=== PATIENT | female | born 2000 | race Caucasian/White ===

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

== ENCOUNTER 2021-04-28 13:20 | Emergency (ER) | payer OTHER ==
[~2021-04-28] VITALS: Ht 162.5 cm; Wt 114.3 kg
[2021-04-28 13:27] VITALS: BP 145/86
[2021-04-28 14:41] LABS: BASO # 0.1 10*3/uL (0.0-0.1); EOS # 0.4 10*3/uL (0.0-0.4); EOS % 3.9 % (1.0-4.0); HEMATOCRIT 36.9 % (37.0-47.0); LYMPH # 1.3 10*3/uL (1.3-4.4); LYMPH % 11.6 % (27.0-41.0); MEAN CELL VOLUME 75.6 fl (81.0-99.0); MEAN CORPUSCULAR HGB 22.3 pg (27.0-31.0); MEAN CORPUSCULAR HGB CONC 29.5 g/dl (33.0-37.0); MEAN PLATELET VOLUME 9.6 fl (9.6-12.3); MONO # 1.3 10*3/uL (0.1-1.0); MONO % 11.4 % (3.0-9.0); NEUT # 7.9 10*3/uL (2.3-7.9); NEUT % 71.4 % (47.0-73.0); PLATELET COUNT AUTOMATED 446 10*3/uL (130-400); RED BLOOD COUNT 4.88 10*6/uL (4.10-5.10); RED CELL DISTRI WIDTH 15.6 % (0-14.5); WHITE BLOOD COUNT 11.1 10*3/uL (4.8-10.8)
[2021-04-28 14:46] LABS: BILIRUBIN Negative (Negative); BLOOD Negative (Negative); CLARITY Cloudy (Clear); COLOR Yellow (Yellow); GLUCOSE Negative (Negative); KETONE Negative (Negative); LEUKO ESTERASE 3+ (Negative); NITRITE Negative (Negative); SPECIFIC GRAVITY 1.025 (1.001-1.030); UROBILINOGEN 0.2 E.U./dl (0.0-1.0)
[2021-04-28 14:57] LABS: ACT PARTIAL THROMBO TIME 28.7 SECONDS (20.0-32.1); INTERNATIONAL NORM RATIO 0.9 (2.0-3.5)
[2021-04-28] MEDS ORDERED: B COMPLEX1 EACH PO (15:02)
[2021-04-28] MEDS ORDERED: NEURONTIN300 MG PO (15:02)
[2021-04-28] MEDS ORDERED: VITAMIN C100 M3 PO (15:03)
[2021-04-28] MEDS ORDERED: MAGNESIUM400 M1 PO (15:03)
[2021-04-28] MEDS ORDERED: BIOTIN5 M1 PO (15:04)
[2021-04-28] MEDS ORDERED: NATURE'S BLEND F1 MG PO (15:04)
[2021-04-28] MEDS ORDERED: ASPIRIN ADULT L81 M1 PO (15:04)
[2021-04-28] MEDS ORDERED: PROZAC40 M1 PO (15:06)
[2021-04-28] MEDS ORDERED: IMITREX100 MG PO (15:07)
[2021-04-28 15:08] LABS: ALKALINE PHOSPHATASE 91 U/L (45-117); BUN 8 mg/dl (7-24); CHLORIDE 104 mmol/L (98-107); CREATININE 0.92 mg/dL (0.55-1.02); LIPASE 88 U/L (73-393); SGOT/AST 12 IU/L (3-35); SGPT/ALT 19 U/L (12-78); SODIUM 140 mmol/L (136-145); TOTAL PROTEIN 7.3 gm/dL (6.4-8.2)
[2021-04-28 15:13] LABS: TROPONIN I < 0.015 ng/ml (<0.045)
[2021-04-28 15:22] LABS: BACTERIA 3+; EPITHELIAL CELLS 31-40; WBC TNTC wbc/hpf (0-5)
[2021-04-28] MEDS ORDERED: ZITHROMAX250 MG PO (18:39)
[2021-04-28] MEDS ORDERED: PREDNISONE20 M1 PO (18:39)
[2021-04-28] MEDS ORDERED: PROVENTIL HFA6.7 GM INH (18:39)
== END 2021-04-28 20:59 | disposition home or self-care (01) ==
LOC: ED 13:20
PROVIDERS: Physician Assistant
DX: J18.9 Pneumonia, unspecified organism (principal); Z88.8 Allergy status to other drugs, medicaments and biological substances; Z79.899 Other long term (current) drug therapy; Z79.82 Long term (current) use of aspirin

== ENCOUNTER 2021-04-30 02:45 | Inpatient (IN) | payer OTHER ==
[~2021-04-30] VITALS: Ht 162.5 cm; Wt 113.4 kg
[~2021-04-30 02:45] MED LIST changes: +ASPIRIN ADULT L81 M1 PO; +B COMPLEX1 EACH PO; +BIOTIN5 M1 PO; +IMITREX100 MG PO; +MAGNESIUM400 M1 PO; +NATURE'S BLEND F1 MG PO; +NEURONTIN300 MG PO; +PREDNISONE20 M1 PO; +PROVENTIL HFA6.7 GM INH; +PROZAC40 M1 PO; +VITAMIN C100 M3 PO; +ZITHROMAX250 MG PO
[2021-04-30 02:56] VITALS: BP 122/64
[2021-04-30 04:39] LABS: BASO % 0.3 % (0.0-1.0); LYMPH # 0.4 10*3/uL (1.3-4.4); LYMPH % 3.4 % (27.0-41.0); MEAN CELL VOLUME 74.7 fl (81.0-99.0); MEAN CORPUSCULAR HGB 22.2 pg (27.0-31.0); MEAN CORPUSCULAR HGB CONC 29.7 g/dl (33.0-37.0); MEAN PLATELET VOLUME 9.7 fl (9.6-12.3); MONO # 1.2 10*3/uL (0.1-1.0); MONO % 10.3 % (3.0-9.0); NEUT # 9.8 10*3/uL (2.3-7.9); NEUT % 84.9 % (47.0-73.0); PLATELET COUNT AUTOMATED 417 10*3/uL (130-400); RED BLOOD COUNT 4.42 10*6/uL (4.10-5.10); RED CELL DISTRI WIDTH 15.5 % (0-14.5); WHITE BLOOD COUNT 11.5 10*3/uL (4.8-10.8)
[2021-04-30 04:49] VITALS: BP 129/64
[2021-04-30 04:54] LABS: ALBUMIN 2.9 gm/dl (3.1-4.5); ALKALINE PHOSPHATASE 77 U/L (45-117); BUN 10 mg/dl (7-24); CHLORIDE 108 mmol/L (98-107); CREATININE 0.92 mg/dL (0.55-1.02); POTASSIUM 4.1 mmol/L (3.5-5.1); SGOT/AST 15 IU/L (3-35); SGPT/ALT 28 U/L (12-78); SODIUM 138 mmol/L (136-145); TOTAL PROTEIN 6.8 gm/dL (6.4-8.2)
[2021-04-30 05:00] LABS: BILIRUBIN Negative (Negative); BLOOD Negative (Negative); CLARITY Clear (Clear); COLOR Yellow (Yellow); GLUCOSE Negative (Negative); KETONE Negative (Negative); LEUKO ESTERASE 2+ (Negative); NITRITE Negative (Negative); PH 5.5 (4.5-8.0); UROBILINOGEN 0.2 E.U./dl (0.0-1.0)
[2021-04-30 05:16] LABS: BACTERIA 1+; RBC 16-20 rbc/hpf (0-2); WBC 21-30 wbc/hpf (0-5)
[2021-04-30 06:22] VITALS: BP 122/77
[2021-04-30 08:24] VITALS: BP 124/85
[2021-04-30 12:38] VITALS: BP 122/78
[2021-04-30 20:18] VITALS: BP 124/74
[2021-05-01 03:22] VITALS: BP 110/69
[2021-05-01 05:52] LABS: ALBUMIN 2.8 gm/dl (3.1-4.5); BUN 11 mg/dl (7-24); CHLORIDE 109 mmol/L (98-107); SGOT/AST 12 IU/L (3-35); SGPT/ALT 23 U/L (12-78); SODIUM 139 mmol/L (136-145)
[2021-05-01 06:00] LABS: ALKALINE PHOSPHATASE 72 U/L (45-117); CHOLESTEROL 219 mg/dL (<200); CREATININE 0.74 mg/dL (0.55-1.02); LDL CHOLESTEROL 142 mg/dL (9-159); THYROID STIM HORMONE (HS) 0.152 uIU/ml (0.358-4.75); TOTAL PROTEIN 6.8 gm/dL (6.4-8.2); TRIGLYCERIDES 101 mg/dl (<150)
[2021-05-01 06:10] LABS: BASO % 0.1 % (0.0-1.0); HEMATOCRIT 35.2 % (37.0-47.0); LYMPH # 1.5 10*3/uL (1.3-4.4); LYMPH % 18.8 % (27.0-41.0); MEAN CELL VOLUME 75.5 fl (81.0-99.0); MEAN CORPUSCULAR HGB 21.9 pg (27.0-31.0); MEAN PLATELET VOLUME 10.1 fl (9.6-12.3); MONO # 1.3 10*3/uL (0.1-1.0); MONO % 16.9 % (3.0-9.0); NEUT # 4.9 10*3/uL (2.3-7.9); NEUT % 63.4 % (47.0-73.0); PLATELET COUNT AUTOMATED 444 10*3/uL (130-400); RED BLOOD COUNT 4.66 10*6/uL (4.10-5.10); RED CELL DISTRI WIDTH 15.7 % (0-14.5); WHITE BLOOD COUNT 7.8 10*3/uL (4.8-10.8)
[2021-05-01 06:19] VITALS: BP 120/79
[2021-05-01 06:53] LABS: ACT PARTIAL THROMBO TIME 29.9 SECONDS (20.0-32.1); INTERNATIONAL NORM RATIO 0.9 (2.0-3.5)
[2021-05-01 06:56] LABS: FERRITIN 56.5 ng/mL (10.0-291.0); VITAMIN D, 25-HYDROXY 35.3 ng/mL (30-100)
[2021-05-01 08:36] VITALS: BP 109/65
[2021-05-01 13:00] VITALS: BP 106/61
[2021-05-01 20:00] VITALS: BP 136/86
[2021-05-02] VITALS: BP 111/67
[2021-05-02 08:00] VITALS: BP 130/89
[2021-05-02 12:00] VITALS: BP 121/78
[2021-05-02] MEDS ORDERED: DECADRON6 M1 PO (12:21)
== END 2021-05-02 13:23 | disposition home or self-care (01) | DRG 720 ==
LOC: ED 02:45 → 4E 05:55 → EDHOLD 05:55 → 4E 05-01 12:18
PROVIDERS: Emergency Medicine; Hospitalist; ADMIT Family Medicine; ATTEND Family Medicine
PROC: XW033E5 Introduction of Remdesivir Anti-infective into Peripheral Vein, Percutaneous Approach, New Technology Group 5 (ICD-10-PCS; principal; 2021-05-01)
DX: A41.9 Sepsis, unspecified organism (principal); R65.20 Severe sepsis without septic shock; U07.1 COVID-19; J12.82 Pneumonia due to coronavirus disease 2019; E44.0 Moderate protein-calorie malnutrition; N30.00 Acute cystitis without hematuria; G43.909 Migraine, unspecified, not intractable, without status migrainosus; E87.2 Acidosis; J96.01 Acute respiratory failure with hypoxia; G35 Multiple sclerosis; F32.A Depression, unspecified; R73.9 Hyperglycemia, unspecified; Z88.5 Allergy status to narcotic agent; Z88.8 Allergy status to other drugs, medicaments and biological substances; Z79.51 Long term (current) use of inhaled steroids; Z79.82 Long term (current) use of aspirin; Z79.899 Other long term (current) drug therapy; Z68.41 Body mass index [BMI] 40.0-44.9, adult

== ENCOUNTER → 2021-07-07 | Outpatient (CLI) | payer OTHER ==
[~2021-07-07] MED LIST changes: +DECADRON6 M1 PO
== END | disposition home or self-care (01) ==
LOC: CT 12:32
PROVIDERS: ATTEND Internal Medicine Critical Care Medicine
DX: U07.1 COVID-19 (principal); J12.82 Pneumonia due to coronavirus disease 2019; J84.10 Pulmonary fibrosis, unspecified

== ENCOUNTER → 2021-08-17 | Outpatient (CLI) | payer OTHER | END | disposition home or self-care (01) | LOC: CARD 00:04 | PROVIDERS: ATTEND Internal Medicine Cardiovascular Disease | DX: I35.1 Nonrheumatic aortic (valve) insufficiency (principal) ==

== ENCOUNTER 2022-06-15 22:30 | Emergency (ER) | payer OTHER ==
[~2022-06-15] VITALS: Ht 165.1 cm; Wt 99.4 kg
[~2022-06-15 22:30] MED LIST changes: +ADDERALL XR25 MG PO; +ATIVAN0.5 MG PO; +BENTYL PO; +BUDESONIDE-FO10.2 GM INH; +CETIRIZINE HYDR10 MG PO; +DILTIAZEM CD240 MG PO; +DULOXETINE HCL40 MG PO; +GEMTESA75 MG PO; +HYDROCHLOROTHIA25 M1 PO; +KETOCONAZOLE 1120 ML T; +METOPROLOL SUCC50 M1 PO; +NEXTSTELLIS 3-1 EACH PO; +NYSTATIN1 EAC3 T; +POTASSIUM CHLO20 ME4 PO; +TORSEMIDE20 MG PO; +TRAZODONE50 MG PO
[2022-06-15 22:45] VITALS: BP 130/86
[2022-06-15 23:37] LABS: HEMATOCRIT 34.7 % (37.0-47.0); MEAN CORPUSCULAR HGB 22.2 pg (27.0-31.0); MEAN CORPUSCULAR HGB CONC 30.8 g/dl (33.0-37.0); MEAN PLATELET VOLUME 8.7 fl (9.6-12.3); PLATELET COUNT AUTOMATED 572 10*3/uL (130-400); RED BLOOD COUNT 4.82 10*6/uL (4.10-5.10); WHITE BLOOD COUNT 13.1 10*3/uL (4.8-10.8)
[2022-06-15 23:38] LABS: MANUAL DIFF REFLEX YES
[2022-06-15 23:56] LABS: ALKALINE PHOSPHATASE 89 U/L (45-117); BUN 3 mg/dl (7-24); CHLORIDE 96 mmol/L (98-107); CREATININE 0.71 mg/dL (0.55-1.02); LIPASE 226 U/L (73-393); POTASSIUM 2.7 mmol/L (3.5-5.1); SGPT/ALT 22 U/L (12-78); SODIUM 134 mmol/L (136-145); TOTAL PROTEIN 5.2 gm/dL (6.4-8.2)
[2022-06-15 23:58] LABS: PLATELET SUFFICIENCY HIGH (NORMAL); TOTAL CELLS COUNTED 100 #CELLS
[2022-06-16 00:30] LABS: BILIRUBIN Negative (Negative); BLOOD Trace-Lysed (Negative); CLARITY Turbid (Clear); COLOR Dark Yellow (Yellow); GLUCOSE Negative (Negative); KETONE Trace (Negative); LEUKO ESTERASE 3+ (Negative); NITRITE Negative (Negative); PH 6.5 (4.5-8.0); SPECIFIC GRAVITY 1.025 (1.001-1.030)
[2022-06-16 00:39] LABS: CALCIUM OXALATE CRYSTALS 3+; EPITHELIAL CELLS TNTC; WBC 41-50 wbc/hpf (0-5)
[2022-06-16] MEDS ORDERED: CIPRO500 MG PO (04:39)
[2022-06-16] MEDS ORDERED: PREDNISONE20 M1 PO (04:39)
[2022-06-16] MEDS ORDERED: METRONIDAZOLE500 M1 PO (04:39)
== END 2022-06-16 05:00 | disposition home or self-care (01) ==
LOC: ED 22:30
PROVIDERS: Internal Medicine
DX: A41.9 Sepsis, unspecified organism (principal); K52.9 Noninfective gastroenteritis and colitis, unspecified; E87.8 Other disorders of electrolyte and fluid balance, not elsewhere classified; D64.9 Anemia, unspecified; E43 Unspecified severe protein-calorie malnutrition; Z88.8 Allergy status to other drugs, medicaments and biological substances; Z79.899 Other long term (current) drug therapy; Z79.82 Long term (current) use of aspirin; Z90.49 Acquired absence of other specified parts of digestive tract; Z90.89 Acquired absence of other organs

== ENCOUNTER 2022-07-01 21:40 | Emergency (ER) | payer OTHER ==
[~2022-07-01] VITALS: Ht 162.5 cm; Wt 99.8 kg
[~2022-07-01 21:40] MED LIST changes: +CIPRO500 MG PO; +METRONIDAZOLE500 M1 PO
[2022-07-01 21:52] VITALS: BP 134/73
[2022-07-05] MEDS ORDERED: ORTIKOS9 MG PO (08:53)
[2022-07-05] MEDS ORDERED: ASACOL HD800 M1 PO (08:53)
== END 2022-07-01 23:42 | disposition home or self-care (01) ==
LOC: ED 21:40
DX: G43.909 Migraine, unspecified, not intractable, without status migrainosus (principal); S93.402A Sprain of unspecified ligament of left ankle, initial encounter; Z88.8 Allergy status to other drugs, medicaments and biological substances; Z79.899 Other long term (current) drug therapy; Z79.82 Long term (current) use of aspirin; Z90.49 Acquired absence of other specified parts of digestive tract; Z90.89 Acquired absence of other organs; W18.39XA Other fall on same level, initial encounter; Y93.89 Activity, other specified; Y92.89 Other specified places as the place of occurrence of the external cause; Y99.8 Other external cause status

== ENCOUNTER → 2022-07-05 | Day surgery (SDC) | payer OTHER ==
[~2022-07-05] VITALS: Ht 162.5 cm; Wt 99.8 kg
[~2022-07-05] MED LIST changes: +ASACOL HD800 M1 PO; +ORTIKOS9 MG PO
[2022-07-05 08:15] VITALS: BP 143/71
[2022-07-05 08:50] VITALS: BP 95/43
[2022-07-05 09:05] VITALS: BP 114/84
[2022-07-05 09:20] VITALS: BP 117/81
== END | disposition home or self-care (01) ==
LOC: SDC 07-02 02:04
PROVIDERS: ATTEND Surgery
DX: R63.4 Abnormal weight loss (principal); K29.50 Unspecified chronic gastritis without bleeding; K52.89 Other specified noninfective gastroenteritis and colitis; K51.90 Ulcerative colitis, unspecified, without complications; F90.9 Attention-deficit hyperactivity disorder, unspecified type; F41.9 Anxiety disorder, unspecified; F32.9 Major depressive disorder, single episode, unspecified; Z79.899 Other long term (current) drug therapy; Z90.89 Acquired absence of other organs

== ENCOUNTER 2023-11-07 19:58 | Inpatient (IN) | payer SELFPAY ==
[~2023-11-07] VITALS: Ht 160 cm; Wt 118.4 kg
[2023-11-07 20:08] VITALS: BP 132/88
[2023-11-07] MEDS ORDERED: IOHEXOL 300 MG/ML 100 ML VIAL IV ONE (20:45)
[2023-11-07 20:53] LABS: BASO # 0.1 10*3/uL (0.0-0.1); BASO % 0.5 % (0.0-1.0); EOS # 0.2 10*3/uL (0.0-0.4); EOS % 1.5 % (1.0-4.0); HEMATOCRIT 39.7 % (37.0-47.0); LYMPH # 2.9 10*3/uL (1.3-4.4); LYMPH % 18.3 % (27.0-41.0); MEAN CELL VOLUME 78.8 fl (81.0-99.0); MEAN CORPUSCULAR HGB 22.8 pg (27.0-31.0); MEAN PLATELET VOLUME 10.5 fl (9.6-12.3); MONO # 1.3 10*3/uL (0.1-1.0); MONO % 8.4 % (3.0-9.0); NEUT # 11.2 10*3/uL (2.3-7.9); NEUT % 70.8 % (47.0-73.0); PLATELET COUNT AUTOMATED 432 10*3/uL (130-400); RED BLOOD COUNT 5.04 10*6/uL (4.10-5.10); WHITE BLOOD COUNT 15.8 10*3/uL (4.8-10.8)
[2023-11-07 21:13] LABS: ALKALINE PHOSPHATASE 99 U/L (46-116); BUN 10 mg/dl (9-23); CHLORIDE 106 mmol/L (98-107); POTASSIUM 3.8 mmol/L (3.4-5.1); SGPT/ALT 23 U/L (5-49); TOTAL PROTEIN 6.8 gm/dL (6.0-8.0)
[2023-11-07 21:55] LABS: BILIRUBIN Negative (Negative); BLOOD 3+ (Negative); CLARITY Turbid (Clear); COLOR Yellow (Yellow); GLUCOSE Negative (Negative); KETONE Negative (Negative); LEUKO ESTERASE 3+ (Negative); NITRITE Negative (Negative); PH 5.5 (4.5-8.0); SPECIFIC GRAVITY 1.025 (1.001-1.030); UROBILINOGEN 0.2 E.U./dl (0.0-1.0)
[2023-11-07 22:14] LABS: WBC TNTC wbc/hpf (0-5)
[2023-11-07] MEDS ORDERED: SODIUM CHLORIDE 0.9% 1,000 ML IV SCH (23:30)
[2023-11-07] MEDS ORDERED: Ceftriaxone Sodium 1 GM/10 ML SYR IV ONE (23:30)
[2023-11-08] MEDS ORDERED: ACETAMINOPHEN 650 MG SUPP R PRN (00:25)
[2023-11-08] MEDS ORDERED: TEMAZEPAM 15 MG CAP PO PRN (00:25)
[2023-11-08] MEDS ORDERED: Ondansetron Hydrochloride 4 MG/2 ML VIAL IV PRN (00:25)
[2023-11-08] MEDS ORDERED: ACETAMINOPHEN 325 MG TAB PO PRN (00:25)
[2023-11-08 00:33] VITALS: BP 137/80
[2023-11-08 01:12] VITALS: BP 146/85
[2023-11-08] MEDS ORDERED: Piperacillin Sodium/Tazobact 50 ML IV SCH (06:00)
[2023-11-08 06:30] LABS: BUN 6 mg/dl (9-23); CHLORIDE 111 mmol/L (98-107); POTASSIUM 3.7 mmol/L (3.4-5.1)
[2023-11-08 07:25] LABS: BASO # 0.1 10*3/uL (0.0-0.1); BASO % 0.6 % (0.0-1.0); EOS # 0.4 10*3/uL (0.0-0.4); EOS % 2.8 % (1.0-4.0); HEMATOCRIT 36.2 % (37.0-47.0); LYMPH # 2.5 10*3/uL (1.3-4.4); LYMPH % 19.5 % (27.0-41.0); MEAN CELL VOLUME 79.2 fl (81.0-99.0); MEAN PLATELET VOLUME 10.6 fl (9.6-12.3); MONO # 1.5 10*3/uL (0.1-1.0); MONO % 11.3 % (3.0-9.0); NEUT # 8.4 10*3/uL (2.3-7.9); NEUT % 65.3 % (47.0-73.0); PLATELET COUNT AUTOMATED 338 10*3/uL (130-400); RED BLOOD COUNT 4.57 10*6/uL (4.10-5.10); RED CELL DISTRI WIDTH 15.2 % (0-14.5); WHITE BLOOD COUNT 12.9 10*3/uL (4.8-10.8)
[2023-11-08 08:00] VITALS: BP 118/68
[2023-11-08] MEDS ORDERED: methylPREDNISolone sod succ 40 MG VIAL IV SCH (10:00)
[2023-11-08] MEDS ORDERED: Enoxaparin Sodium 40 MG/0.4 ML SYR SC SCH (10:00)
[2023-11-08 12:00] VITALS: BP 142/80
[2023-11-08 16:00] VITALS: BP 124/65
[2023-11-08 20:00] VITALS: BP 126/81
[2023-11-09] VITALS: BP 107/54
[2023-11-09 05:56] LABS: BUN 8 mg/dl (9-23); CHLORIDE 109 mmol/L (98-107); POTASSIUM 3.8 mmol/L (3.4-5.1)
[2023-11-09 06:11] LABS: HEMATOCRIT 36.9 % (37.0-47.0); MEAN CELL VOLUME 78.7 fl (81.0-99.0); MEAN CORPUSCULAR HGB 23.5 pg (27.0-31.0); MEAN CORPUSCULAR HGB CONC 29.8 g/dl (33.0-37.0); PLATELET COUNT AUTOMATED 415 10*3/uL (130-400); RED BLOOD COUNT 4.69 10*6/uL (4.10-5.10); RED CELL DISTRI WIDTH 15.3 % (0-14.5); WHITE BLOOD COUNT 15.8 10*3/uL (4.8-10.8)
[2023-11-09 06:16] LABS: MANUAL DIFF REFLEX YES
[2023-11-09 07:02] LABS: PLATELET SUFFICIENCY HIGH (NORMAL); POLYCHROMASIA SLIGHT; TOTAL CELLS COUNTED 100 #CELLS
[2023-11-09 07:03] LABS: MICROCYTOSIS SLIGHT; OVALOCYTES FEW
[2023-11-09 10:31] VITALS: BP 118/70
== END 2023-11-09 13:00 | disposition home or self-care (01) | DRG 872 ==
LOC: ED 19:58 → 4E 11-08 00:04 → EDHOLD 11-08 00:04 → 4E 11-08 00:22
PROVIDERS: Emergency Medicine; Student in an Organized Health Care Education/Training Program; ADMIT Family Medicine; ATTEND Family Medicine
DX: A41.9 Sepsis, unspecified organism (principal); N30.01 Acute cystitis with hematuria; K50.911 Crohn's disease, unspecified, with rectal bleeding; K52.9 Noninfective gastroenteritis and colitis, unspecified; D50.9 Iron deficiency anemia, unspecified; D75.839 Thrombocytosis, unspecified; F32.A Depression, unspecified; G43.909 Migraine, unspecified, not intractable, without status migrainosus; I10 Essential (primary) hypertension; D56.0 Alpha thalassemia; J45.20 Mild intermittent asthma, uncomplicated; E55.9 Vitamin D deficiency, unspecified; Z88.5 Allergy status to narcotic agent; Z88.1 Allergy status to other antibiotic agents; Z79.51 Long term (current) use of inhaled steroids; Z79.899 Other long term (current) drug therapy; Z90.49 Acquired absence of other specified parts of digestive tract; Z82.49 Family history of ischemic heart disease and other diseases of the circulatory system

== ENCOUNTER 2024-03-03 12:16 | Inpatient (IN) | payer SELFPAY ==
[~2024-03-03] VITALS: Ht 162.6 cm; Wt 118.9 kg
[2024-03-03 13:04] VITALS: BP 139/84
[2024-03-03 13:17] LABS: BILIRUBIN 1+ (Negative); BLOOD 3+ (Negative); CLARITY Cloudy (Clear); COLOR Dark Yellow (Yellow); GLUCOSE Negative (Negative); KETONE Trace (Negative); LEUKO ESTERASE 2+ (Negative); NITRITE Positive (Negative); SPECIFIC GRAVITY >= 1.030 (1.001-1.030)
[2024-03-03 13:39] LABS: RBC TNTC rbc/hpf (0-2); WBC TNTC wbc/hpf (0-5)
[2024-03-03] MEDS ORDERED: SODIUM CHLORIDE 0.9% 1,000 ML IV SCH (14:05)
[2024-03-03] MEDS ORDERED: Ondansetron Hydrochloride 4 MG/2 ML VIAL IV ONE (14:05)
[2024-03-03 14:15] LABS: BASO # 0.1 10*3/uL (0.0-0.1); BASO % 0.8 % (0.0-1.0); EOS # 0.3 10*3/uL (0.0-0.4); EOS % 2.3 % (1.0-4.0); HEMATOCRIT 40.6 % (37.0-47.0); LYMPH # 2.1 10*3/uL (1.3-4.4); LYMPH % 15.8 % (27.0-41.0); MEAN CELL VOLUME 74.4 fl (81.0-99.0); MEAN CORPUSCULAR HGB 21.6 pg (27.0-31.0); MEAN CORPUSCULAR HGB CONC 29.1 g/dl (33.0-37.0); MEAN PLATELET VOLUME 10.1 fl (9.6-12.3); MONO # 1.3 10*3/uL (0.1-1.0); MONO % 9.9 % (3.0-9.0); NEUT # 9.3 10*3/uL (2.3-7.9); NEUT % 70.6 % (47.0-73.0); PLATELET COUNT AUTOMATED 512 10*3/uL (130-400); RED BLOOD COUNT 5.46 10*6/uL (4.10-5.10); RED CELL DISTRI WIDTH 16.6 % (0-14.5); WHITE BLOOD COUNT 13.2 10*3/uL (4.8-10.8)
[2024-03-03 14:28] LABS: BUN 11 mg/dl (9-23); CHLORIDE 108 mmol/L (98-107)
[2024-03-03] MEDS ORDERED: Ceftriaxone Sodium 1 GM/10 ML SYR IV ONE (14:45)
[2024-03-03] MEDS ORDERED: Ketorolac Tromethamine 30 MG/ML VIAL IV ONE (15:25)
[2024-03-03] MEDS ORDERED: AZITHROMYCIN 250 ML IV ONE (15:30)
[2024-03-03] MEDS ORDERED: Ondansetron Hydrochloride 4 MG/2 ML VIAL IV PRN (15:50)
[2024-03-03] MEDS ORDERED: ACETAMINOPHEN 325 MG TAB PO PRN (15:50)
[2024-03-03] MEDS ORDERED: ADDERALL XR 3030 MG PO (15:52)
[2024-03-03] MEDS ORDERED: SINGULAIR10 M1 PO (15:55)
[2024-03-03] MEDS ORDERED: VENT7GM INH (15:55)
[2024-03-03] MEDS ORDERED: POTASSIUM CHLO20 ME3 PO (15:55)
[2024-03-03] MEDS ORDERED: OMEGA 3-6-9 11200 MG PO (15:56)
[2024-03-03] MEDS ORDERED: HYDR25T PO (15:59)
[2024-03-03] MEDS ORDERED: MAGOX 400400 MG PO (15:59)
[2024-03-03] MEDS ORDERED: SODIUM CHLORIDE 0.9% 1,000 ML IV ONE (16:05)
[2024-03-03] MEDS ORDERED: OCREVUS (16:13)
[2024-03-03] MEDS ORDERED: Meropenem 1 GM in SODIUM CHLORIDE 0.9% 100 ML IV SCH (18:00)
[2024-03-03 18:05] VITALS: BP 114/74
[2024-03-03 20:20] VITALS: BP 107/58
[2024-03-04] VITALS: BP 120/64
[2024-03-04] MEDS ORDERED: Ketorolac Tromethamine 30 MG/ML VIAL IV ONE (00:05)
[2024-03-04] MEDS ORDERED: Ketorolac Tromethamine 30 MG/ML VIAL IV PRN (06:15)
[2024-03-04 06:53] LABS: BASO # 0.1 10*3/uL (0.0-0.1); BASO % 0.8 % (0.0-1.0); EOS # 0.2 10*3/uL (0.0-0.4); EOS % 1.4 % (1.0-4.0); HEMATOCRIT 36.6 % (37.0-47.0); LYMPH # 2.4 10*3/uL (1.3-4.4); LYMPH % 18.2 % (27.0-41.0); MEAN CELL VOLUME 74.4 fl (81.0-99.0); MEAN CORPUSCULAR HGB 22.2 pg (27.0-31.0); MEAN CORPUSCULAR HGB CONC 29.8 g/dl (33.0-37.0); MEAN PLATELET VOLUME 10.2 fl (9.6-12.3); MONO # 0.9 10*3/uL (0.1-1.0); MONO % 6.7 % (3.0-9.0); NEUT # 9.5 10*3/uL (2.3-7.9); NEUT % 72.1 % (47.0-73.0); PLATELET COUNT AUTOMATED 431 10*3/uL (130-400); RED BLOOD COUNT 4.92 10*6/uL (4.10-5.10); RED CELL DISTRI WIDTH 16.7 % (0-14.5); WHITE BLOOD COUNT 13.2 10*3/uL (4.8-10.8)
[2024-03-04 07:53] LABS: ALKALINE PHOSPHATASE 73 U/L (46-116); BUN 11 mg/dl (9-23); CHLORIDE 113 mmol/L (98-107); POTASSIUM 4.6 mmol/L (3.4-5.1); SGPT/ALT 12 U/L (5-49); TOTAL PROTEIN 5.4 gm/dL (6.0-8.0)
[2024-03-04 08:00] VITALS: BP 122/50
[2024-03-04] MEDS ORDERED: LORazepam 0.5 MG TAB PO PRN (08:30)
[2024-03-04] MEDS ORDERED: SODIUM CHLORIDE 0.9% 1,000 ML IV ONE (08:30)
[2024-03-04] MEDS ORDERED: Fluoxetine Hydrochloride 20 MG CAP PO SCH (10:00)
[2024-03-04] MEDS ORDERED: Enoxaparin Sodium 40 MG/0.4 ML SYR SC SCH (10:00)
[2024-03-04] MEDS ORDERED: Montelukast Sodium 10 MG TAB PO SCH (10:00)
[2024-03-04] MEDS ORDERED: SUMATRIPTAN SUCCINATE 100 MG TAB PO PRN (10:00)
[2024-03-04] MEDS ORDERED: MAGNESIUM OXIDE 400 MG TAB PO SCH (10:00)
[2024-03-04] MEDS ORDERED: ADDERAL 30 MG PO SCH (10:00)
[2024-03-04 12:00] VITALS: BP 134/50
[2024-03-04] MEDS ORDERED: Phenazopyridine Hydrochlorid2 100 MG TAB PO SCH (12:05)
[2024-03-04] MEDS ORDERED: Acetaminophen/Hydrocodone ES 7.5/325 tablet PO PRN (12:05)
[2024-03-04] MEDS ORDERED: IBUPROFEN 400 MG TAB PO PRN (13:05)
[2024-03-04 16:28] VITALS: BP 122/64
[2024-03-04 20:45] VITALS: BP 120/58
[2024-03-04 22:25] VITALS: BP 127/85
[2024-03-05] VITALS: BP 124/76
[2024-03-05 06:23] LABS: BASO # 0.1 10*3/uL (0.0-0.1); BASO % 1.1 % (0.0-1.0); EOS # 0.5 10*3/uL (0.0-0.4); EOS % 3.9 % (1.0-4.0); HEMATOCRIT 37.6 % (37.0-47.0); LYMPH # 2.8 10*3/uL (1.3-4.4); LYMPH % 22.3 % (27.0-41.0); MEAN CELL VOLUME 73.6 fl (81.0-99.0); MEAN CORPUSCULAR HGB 21.7 pg (27.0-31.0); MEAN CORPUSCULAR HGB CONC 29.5 g/dl (33.0-37.0); MEAN PLATELET VOLUME 10.5 fl (9.6-12.3); MONO # 1.1 10*3/uL (0.1-1.0); MONO % 8.4 % (3.0-9.0); NEUT # 8.1 10*3/uL (2.3-7.9); NEUT % 63.7 % (47.0-73.0); PLATELET COUNT AUTOMATED 479 10*3/uL (130-400); RED BLOOD COUNT 5.11 10*6/uL (4.10-5.10); RED CELL DISTRI WIDTH 16.7 % (0-14.5); WHITE BLOOD COUNT 12.7 10*3/uL (4.8-10.8)
[2024-03-05 06:55] LABS: BUN 11 mg/dl (9-23); CHLORIDE 109 mmol/L (98-107); POTASSIUM 4.3 mmol/L (3.4-5.1)
[2024-03-05 08:00] VITALS: BP 122/70
[2024-03-05] MEDS ORDERED: IBUPROFEN 800 MG TAB PO PRN (08:50)
[2024-03-05 12:00] VITALS: BP 124/50
[2024-03-05 16:00] VITALS: BP 133/78
[2024-03-05 20:00] VITALS: BP 139/81
[2024-03-06] VITALS: BP 127/83
[2024-03-06 06:20] LABS: BASO # 0.1 10*3/uL (0.0-0.1); EOS # 0.4 10*3/uL (0.0-0.4); EOS % 3.3 % (1.0-4.0); HEMATOCRIT 35.9 % (37.0-47.0); LYMPH # 2.7 10*3/uL (1.3-4.4); LYMPH % 21.2 % (27.0-41.0); MEAN CORPUSCULAR HGB CONC 30.1 g/dl (33.0-37.0); MEAN PLATELET VOLUME 10.6 fl (9.6-12.3); MONO # 1.2 10*3/uL (0.1-1.0); MONO % 9.2 % (3.0-9.0); NEUT # 8.2 10*3/uL (2.3-7.9); NEUT % 64.7 % (47.0-73.0); PLATELET COUNT AUTOMATED 446 10*3/uL (130-400); RED BLOOD COUNT 4.92 10*6/uL (4.10-5.10); RED CELL DISTRI WIDTH 16.8 % (0-14.5); WHITE BLOOD COUNT 12.6 10*3/uL (4.8-10.8)
[2024-03-06 06:26] LABS: BUN 10 mg/dl (9-23); CHLORIDE 107 mmol/L (98-107); POTASSIUM 3.9 mmol/L (3.4-5.1)
[2024-03-06 08:00] VITALS: BP 123/67
[2024-03-06 12:00] VITALS: BP 127/73
[2024-03-06 16:00] VITALS: BP 127/83
[2024-03-06 20:00] VITALS: BP 116/79
[2024-03-07] VITALS: BP 122/74
[2024-03-07 06:11] LABS: BASO # 0.1 10*3/uL (0.0-0.1); BASO % 0.9 % (0.0-1.0); EOS # 0.5 10*3/uL (0.0-0.4); EOS % 3.5 % (1.0-4.0); HEMATOCRIT 37.8 % (37.0-47.0); LYMPH # 3.3 10*3/uL (1.3-4.4); LYMPH % 23.2 % (27.0-41.0); MEAN CELL VOLUME 73.3 fl (81.0-99.0); MEAN CORPUSCULAR HGB 21.9 pg (27.0-31.0); MEAN CORPUSCULAR HGB CONC 29.9 g/dl (33.0-37.0); MEAN PLATELET VOLUME 10.1 fl (9.6-12.3); MONO # 1.4 10*3/uL (0.1-1.0); MONO % 9.5 % (3.0-9.0); NEUT # 8.8 10*3/uL (2.3-7.9); NEUT % 62.2 % (47.0-73.0); PLATELET COUNT AUTOMATED 466 10*3/uL (130-400); RED BLOOD COUNT 5.16 10*6/uL (4.10-5.10); WHITE BLOOD COUNT 14.2 10*3/uL (4.8-10.8)
[2024-03-07 06:22] LABS: BUN 11 mg/dl (9-23); CHLORIDE 108 mmol/L (98-107); POTASSIUM 4.6 mmol/L (3.4-5.1)
[2024-03-07 08:00] VITALS: BP 120/75
[2024-03-07 12:00] VITALS: BP 115/66
[2024-03-07] MEDS ORDERED: LEVOFLOXACIN750 M2 PO ×2 (12:18→13:02)
== END 2024-03-07 15:17 | disposition home or self-care (01) | DRG 871 ==
LOC: ED 12:16 → EDHOLD 15:43 → 4E 15:43 → EDHOLD 17:30 → 4E 03-04 21:22
PROVIDERS: Internal Medicine; Nurse Practitioner Family; Registered Nurse; ADMIT Student in an Organized Health Care Education/Training Program; ATTEND Student in an Organized Health Care Education/Training Program
DX: A41.9 Sepsis, unspecified organism (principal); J15.69 Pneumonia due to other Gram-negative bacteria; N30.01 Acute cystitis with hematuria; I10 Essential (primary) hypertension; G35 Multiple sclerosis; Z88.6 Allergy status to analgesic agent; Z88.1 Allergy status to other antibiotic agents; Z90.49 Acquired absence of other specified parts of digestive tract; Z82.49 Family history of ischemic heart disease and other diseases of the circulatory system; Z82.5 Family history of asthma and other chronic lower respiratory diseases; Z86.16 Personal history of COVID-19

== ENCOUNTER 2024-10-21 11:51 | Emergency (ER) | payer OTHER ==
[~2024-10-21] VITALS: Ht 195.5 cm; Wt 113.4 kg
[~2024-10-21 11:51] MED LIST changes: +ADDERALL XR 3030 MG PO; +HYDR25T PO; +LEVOFLOXACIN750 M2 PO; +MAGOX 400400 MG PO; +OCREVUS; +OMEGA 3-6-9 11200 MG PO; +POTASSIUM CHLO20 ME3 PO; +SINGULAIR10 M1 PO; +VENT7GM INH
[2024-10-21 11:59] VITALS: BP 140/84
[2024-10-21] MEDS ORDERED: SODIUM CHLORIDE 0.9% 1,000 ML IV ONE (12:20)
[2024-10-21] MEDS ORDERED: IOHEXOL 300 MG/ML 100 ML VIAL IV ONE (12:25)
[2024-10-21] MEDS ORDERED: IOHEXOL 300 MG/ML 100 ML VIAL ONE (12:43)
[2024-10-21 12:44] LABS: BASO # 0.1 10*3/uL (0.0-0.1); BASO % 0.5 % (0.0-1.0); EOS # 0.3 10*3/uL (0.0-0.4); EOS % 1.9 % (1.0-4.0); HEMATOCRIT 37.4 % (37.0-47.0); MEAN CELL VOLUME 70.2 fl (81.0-99.0); MEAN CORPUSCULAR HGB CONC 29.9 g/dl (33.0-37.0); MEAN PLATELET VOLUME 9.8 fl (9.6-12.3); MONO # 1.3 10*3/uL (0.1-1.0); MONO % 8.4 % (3.0-9.0); NEUT # 11.3 10*3/uL (2.3-7.9); NEUT % 72.2 % (47.0-73.0); PLATELET COUNT AUTOMATED 502 10*3/uL (130-400); RED BLOOD COUNT 5.33 10*6/uL (4.10-5.10); RED CELL DISTRI WIDTH 18.1 % (0-14.5); WHITE BLOOD COUNT 15.7 10*3/uL (4.8-10.8)
[2024-10-21 13:05] LABS: ALKALINE PHOSPHATASE 84 U/L (46-116); BUN 7 mg/dl (9-23); CHLORIDE 104 mmol/L (98-107); LIPASE 35 U/L (12-53); POTASSIUM 3.7 mmol/L (3.4-5.1); SGPT/ALT 19 U/L (5-49); TOTAL PROTEIN 6.5 gm/dL (6.0-8.0)
== END 2024-10-21 14:00 | disposition home or self-care (01) ==
LOC: ED 11:51
PROVIDERS: Nurse Practitioner Family
DX: K52.9 Noninfective gastroenteritis and colitis, unspecified (principal); D72.829 Elevated white blood cell count, unspecified; Z79.899 Other long term (current) drug therapy; Z88.1 Allergy status to other antibiotic agents; Z88.5 Allergy status to narcotic agent; Z90.49 Acquired absence of other specified parts of digestive tract; Z90.89 Acquired absence of other organs; Z98.890 Other specified postprocedural states

== ENCOUNTER 2024-11-04 21:17 | Emergency (ER) | payer OTHER ==
[~2024-11-04] VITALS: Ht 165.1 cm; Wt 113.4 kg
[2024-11-04 21:27] VITALS: BP 137/77
[2024-11-04] MEDS ORDERED: IOHEXOL 300 MG/ML 100 ML VIAL IV ONE ×2 (21:50→22:35)
[2024-11-04 22:02] LABS: BASO # 0.1 10*3/uL (0.0-0.1); BASO % 0.5 % (0.0-1.0); EOS # 0.4 10*3/uL (0.0-0.4); EOS % 2.5 % (1.0-4.0); HEMATOCRIT 38.1 % (37.0-47.0); MEAN CELL VOLUME 70.6 fl (81.0-99.0); MEAN CORPUSCULAR HGB 20.4 pg (27.0-31.0); MEAN CORPUSCULAR HGB CONC 28.9 g/dl (33.0-37.0); MEAN PLATELET VOLUME 9.7 fl (9.6-12.3); MONO # 1.2 10*3/uL (0.1-1.0); MONO % 7.5 % (3.0-9.0); NEUT # 11.3 10*3/uL (2.3-7.9); NEUT % 73.5 % (47.0-73.0); PLATELET COUNT AUTOMATED 517 10*3/uL (130-400); RED CELL DISTRI WIDTH 17.2 % (0-14.5); WHITE BLOOD COUNT 15.4 10*3/uL (4.8-10.8)
[2024-11-04 22:25] LABS: ALKALINE PHOSPHATASE 96 U/L (46-116); BUN 10 mg/dl (9-23); CHLORIDE 105 mmol/L (98-107); POTASSIUM 3.8 mmol/L (3.4-5.1); SGPT/ALT 17 U/L (5-49); TOTAL PROTEIN 7.1 gm/dL (6.0-8.0)
[2024-11-05] MEDS ORDERED: Ciprofloxacin Hydrochloride 500 MG TAB PO ONE (00:30)
[2024-11-05] MEDS ORDERED: methylPREDNISolone sod succ 125 MG VIAL IM ONE (00:30)
[2024-11-05] MEDS ORDERED: metroNIDAZOLE 500 MG TAB PO ONE (00:30)
== END 2024-11-05 00:58 | disposition home or self-care (01) ==
LOC: ED 21:17
PROVIDERS: Internal Medicine
DX: K50.919 Crohn's disease, unspecified, with unspecified complications (principal); D72.829 Elevated white blood cell count, unspecified; D50.9 Iron deficiency anemia, unspecified; Z79.899 Other long term (current) drug therapy; Z88.1 Allergy status to other antibiotic agents; Z88.5 Allergy status to narcotic agent; Z90.49 Acquired absence of other specified parts of digestive tract; Z90.89 Acquired absence of other organs; Z98.890 Other specified postprocedural states

== ENCOUNTER 2025-01-07 22:45 | Emergency (ER) | payer OTHER ==
[~2025-01-07] VITALS: Ht 165.1 cm; Wt 107.5 kg
[2025-01-08 00:30] VITALS: BP 123/70
[2025-01-08] MEDS ORDERED: SODIUM CHLORIDE 0.9% 1,000 ML IV ONE (00:55)
[2025-01-08] MEDS ORDERED: Ketorolac Tromethamine 30 MG/ML VIAL IV ONE (00:55)
[2025-01-08] MEDS ORDERED: Ondansetron Hydrochloride 4 MG/2 ML VIAL IV ONE (00:55)
[2025-01-08] MEDS ORDERED: fentaNYL CITRATE 100 MCG/2 ML VIAL IV ONE (00:55)
[2025-01-08] MEDS ORDERED: IOHEXOL 300 MG/ML 100 ML VIAL IV ONE (01:05)
[2025-01-08 01:27] LABS: BASO # 0.1 10*3/uL (0.0-0.1); BASO % 0.5 % (0.0-1.0); EOS # 0.6 10*3/uL (0.0-0.4); EOS % 3.3 % (1.0-4.0); HEMATOCRIT 31.8 % (37.0-47.0); MEAN CORPUSCULAR HGB 19.8 pg (27.0-31.0); MEAN CORPUSCULAR HGB CONC 28.3 g/dl (33.0-37.0); MEAN PLATELET VOLUME 10.2 fl (9.6-12.3); MONO # 1.4 10*3/uL (0.1-1.0); NEUT % 77.5 % (47.0-73.0); PLATELET COUNT AUTOMATED 563 10*3/uL (130-400); RED BLOOD COUNT 4.54 10*6/uL (4.10-5.10); RED CELL DISTRI WIDTH 20.1 % (0-14.5); WHITE BLOOD COUNT 18.1 10*3/uL (4.8-10.8)
[2025-01-08 01:49] LABS: ALKALINE PHOSPHATASE 99 U/L (46-116); BUN 11 mg/dl (9-23); CHLORIDE 102 mmol/L (98-107); POTASSIUM 3.7 mmol/L (3.4-5.1); SGPT/ALT 19 U/L (5-49); TOTAL PROTEIN 6.6 gm/dL (6.0-8.0)
[2025-01-08] MEDS ORDERED: Piperacillin Sodium/Tazobact 100 ML IV ONE (02:55)
[2025-01-08] MEDS ORDERED: TRAMADOL HCL50 MG PO (02:56)
[2025-01-08] MEDS ORDERED: Ondansetron4 MG PO (02:56)
[2025-01-08] MEDS ORDERED: traMADol Hydrochloride 50 MG TAB PO SCH (06:00)
== END 2025-01-08 03:55 | disposition home or self-care (01) ==
LOC: ED 22:45
PROVIDERS: Emergency Medicine
DX: L98.419 Non-pressure chronic ulcer of buttock with unspecified severity (principal); Z79.899 Other long term (current) drug therapy; Z88.1 Allergy status to other antibiotic agents; Z88.5 Allergy status to narcotic agent; Z90.49 Acquired absence of other specified parts of digestive tract; Z90.89 Acquired absence of other organs; Z98.890 Other specified postprocedural states

== ENCOUNTER 2025-02-12 18:15 | Observation (INO) | payer OTHER ==
[~2025-02-12] VITALS: Ht 165.1 cm; Wt 104.3 kg
[~2025-02-12 18:15] MED LIST changes: +Ondansetron4 MG PO; +TRAMADOL HCL50 MG PO
[2025-02-12 18:33] VITALS: BP 126/73
[2025-02-12] MEDS ORDERED: SODIUM CHLORIDE 0.9% 1,000 ML IV SCH (18:45)
[2025-02-12] MEDS ORDERED: HYDROmorphONE Hydrochloride 0.5 MG/0.5 ML SYRINGE IV ONE (18:45)
[2025-02-12] MEDS ORDERED: IOHEXOL 300 MG/ML 100 ML VIAL IV ONE (18:50)
[2025-02-12 19:13] LABS: MEAN CELL VOLUME 83.4 fl (81.0-99.0); MEAN CORPUSCULAR HGB 23.4 pg (27.0-31.0); MEAN PLATELET VOLUME 9.4 fl (9.6-12.3); NUCLEATED RED BLOOD CELL 0.0 % (0.0-0.0); NUCLEATED RED BLOOD CELL 0.0 10*3/uL (0.0-0.0); PLATELET COUNT AUTOMATED 346 10*3/uL (130-400); RED CELL DISTRI WIDTH 28.1 % (0-14.5)
[2025-02-12 19:14] LABS: MANUAL DIFF REFLEX YES
[2025-02-12 19:24] LABS: ACT PARTIAL THROMBO TIME 26.8 SECONDS (20.0-32.1)
[2025-02-12 19:28] LABS: BILIRUBIN Negative (Negative); BLOOD 2+ (Negative); CLARITY Cloudy (Clear); COLOR Orange (Yellow); KETONE Negative (Negative); LEUKO ESTERASE 2+ (Negative); NITRITE Positive (Negative); PH 5.0 (4.5-8.0); SPECIFIC GRAVITY 1.015 (1.001-1.030); UROBILINOGEN 1.0 E.U./dl (0.0-1.0)
[2025-02-12 19:34] LABS: BUN 23 mg/dl (9-23); SGPT/ALT 31 U/L (5-49)
[2025-02-12 19:45] LABS: PLATELET SUFFICIENCY NORMAL (NORMAL)
[2025-02-12 19:53] LABS: BACTERIA 2+; RBC 21-30 rbc/hpf (0-2); WBC 51-100 wbc/hpf (0-5)
[2025-02-13] MEDS ORDERED: Acetaminophen/Oxycodone 5 MG/325 MG TABLET PO ONE (00:25)
[2025-02-13] MEDS ORDERED: SODIUM CHLORIDE 0.9% 1,000 ML IV SCH (00:40)
[2025-02-13 02:07] VITALS: BP 116/57
[2025-02-13] MEDS ORDERED: Ondansetron Hydrochloride 4 MG/2 ML VIAL IV PRN (09:05)
[2025-02-13] MEDS ORDERED: ACETAMINOPHEN 325 MG TAB PO PRN (09:05)
[2025-02-13] MEDS ORDERED: BISACODYL 10 MG SUPP R PRN (09:05)
[2025-02-13] MEDS ORDERED: BISACODYL 5 MG TAB PO PRN (09:05)
[2025-02-13] MEDS ORDERED: Vancomycin Hydrochloride 1,000 MG in SODIUM CHLORIDE 0.9% 250 ML IV SCH ×2 (09:05→11:00)
[2025-02-13] MEDS ORDERED: ACETAMINOPHEN 650 MG SUPP R PRN (09:05)
[2025-02-13 11:18] VITALS: BP 99/63
[2025-02-13 21:42] VITALS: BP 89/43
[2025-02-13 21:47] VITALS: BP 80/40
[2025-02-13] MEDS ORDERED: SODIUM CHLORIDE 0.9% 1,000 ML IV ONE ×2 (21:55)
[2025-02-13 22:17] LABS: BASO # 0.0 10*3/uL (0.0-0.1); BASO % 0.3 % (0.0-1.0); EOS # 0.4 10*3/uL (0.0-0.4); EOS % 3.1 % (1.0-4.0); MEAN CELL VOLUME 82.1 fl (81.0-99.0); MEAN CORPUSCULAR HGB 23.5 pg (27.0-31.0); MEAN PLATELET VOLUME 9.4 fl (9.6-12.3); MONO # 0.8 10*3/uL (0.1-1.0); MONO % 6.3 % (3.0-9.0); NEUT # 8.1 10*3/uL (2.3-7.9); NEUT % 68.0 % (47.0-73.0); NUCLEATED RED BLOOD CELL 0.0 % (0.0-0.0); NUCLEATED RED BLOOD CELL 0.0 10*3/uL (0.0-0.0); PLATELET COUNT AUTOMATED 332 10*3/uL (130-400); RED CELL DISTRI WIDTH 27.5 % (0-14.5)
[2025-02-13 22:36] VITALS: BP 110/60
[2025-02-13 22:37] LABS: SGPT/ALT 26 U/L (5-49)
[2025-02-13 22:38] LABS: BUN 12 mg/dl (9-23)
[2025-02-14 00:05] VITALS: BP 124/61
[2025-02-14 06:25] LABS: BASO # 0.0 10*3/uL (0.0-0.1); BASO % 0.4 % (0.0-1.0); EOS # 0.3 10*3/uL (0.0-0.4); EOS % 3.2 % (1.0-4.0); MEAN CELL VOLUME 82.8 fl (81.0-99.0); MEAN CORPUSCULAR HGB 23.3 pg (27.0-31.0); MEAN PLATELET VOLUME 9.7 fl (9.6-12.3); MONO # 0.8 10*3/uL (0.1-1.0); MONO % 7.6 % (3.0-9.0); NEUT # 6.9 10*3/uL (2.3-7.9); NEUT % 67.9 % (47.0-73.0); NUCLEATED RED BLOOD CELL 0.0 % (0.0-0.0); NUCLEATED RED BLOOD CELL 0.0 10*3/uL (0.0-0.0); PLATELET COUNT AUTOMATED 327 10*3/uL (130-400); RED CELL DISTRI WIDTH 27.2 % (0-14.5)
[2025-02-14 06:49] VITALS: BP 108/57
[2025-02-14 06:50] LABS: BUN 11 mg/dl (9-23); SGPT/ALT 25 U/L (5-49)
[2025-02-14] MEDS ORDERED: Vancomycin Hydrochloride 1,000 MG in SODIUM CHLORIDE 0.9% 250 ML IV SCH (17:00)
[2025-02-14 20:18] VITALS: BP 123/68
[2025-02-15] MEDS ORDERED: HYDROmorphONE Hydrochloride 0.5 MG/0.5 ML SYRINGE IV ONE (00:20)
== END 2025-02-15 00:31 | disposition short-term general hospital (02) ==
LOC: ED 18:15 → EDHOLD 02-13 07:44
PROVIDERS: Internal Medicine; Student in an Organized Health Care Education/Training Program; ADMIT Student in an Organized Health Care Education/Training Program; ATTEND Student in an Organized Health Care Education/Training Program
DX: A41.9 Sepsis, unspecified organism (principal); N39.0 Urinary tract infection, site not specified; R10.9 Unspecified abdominal pain; D72.829 Elevated white blood cell count, unspecified; K50.90 Crohn's disease, unspecified, without complications; E87.0 Hyperosmolality and hypernatremia; R00.0 Tachycardia, unspecified; D64.9 Anemia, unspecified; E66.9 Obesity, unspecified; K52.9 Noninfective gastroenteritis and colitis, unspecified; K58.9 Irritable bowel syndrome, unspecified; Z98.890 Other specified postprocedural states; Z79.899 Other long term (current) drug therapy

== ENCOUNTER 2025-04-07 00:59 | Emergency (ER) | payer OTHER ==
[~2025-04-07] VITALS: Ht 165.1 cm; Wt 108.9 kg
[2025-04-07] MEDS ORDERED: ACETAMINOPHEN 325 MG TAB PO ONE (02:15)
[2025-04-07 02:35] LABS: BILIRUBIN 1+ (Negative); BLOOD 3+ (Negative); CLARITY Turbid (Clear); COLOR Red (Yellow); KETONE Negative (Negative); LEUKO ESTERASE 3+ (Negative); NITRITE Positive (Negative); PH 5.5 (4.5-8.0); SPECIFIC GRAVITY >= 1.030 (1.001-1.030); UROBILINOGEN 0.2 E.U./dl (0.0-1.0)
[2025-04-07 03:14] LABS: BACTERIA 3+; RBC TNTC rbc/hpf (0-2); WBC 41-50 wbc/hpf (0-5)
[2025-04-07] MEDS ORDERED: CIPRO500 MG PO (03:25)
== END 2025-04-07 03:55 | disposition home or self-care (01) ==
LOC: ED 00:59
DX: N39.0 Urinary tract infection, site not specified (principal); G43.909 Migraine, unspecified, not intractable, without status migrainosus; I10 Essential (primary) hypertension; F32.A Depression, unspecified; J45.909 Unspecified asthma, uncomplicated; E66.9 Obesity, unspecified; Z68.30 Body mass index [BMI] 30.0-30.9, adult; Z88.5 Allergy status to narcotic agent; Z88.8 Allergy status to other drugs, medicaments and biological substances; Z90.49 Acquired absence of other specified parts of digestive tract; Z90.89 Acquired absence of other organs